=== PATIENT | male | born 1980 | race Caucasian/White ===

== ENCOUNTER 2018-11-12 19:55 | Observation (INO) ==
[2018-11-12] MEDS ORDERED: Acetaminophen 325 MG TABLET PO ONE (20:19)
[2018-11-12] MEDS ORDERED: Azithromycin 250 MG TABLET PO ONE (20:19)
[2018-11-12] MEDS ORDERED: 0.9 % Sodium Chloride 1,000 ML IVC ONE (20:19)
[2018-11-12] MEDS ORDERED: cefTRIAXone 1,000 MG in Water for inj. (sterile) 10 ML IVP ONE (20:19)
[2018-11-12 20:53] LABS: Basophils % 0.3 %; Eosinophils % 0.1 %; Hematocrit 45.9 % (37.5-50.1); Hemoglobin 15.4 g/dL (12.9-16.9); Immature Granulocytes % 0.3 % (0-4); Lymphocytes # 1.3 K/mcL (0.6-4.6); Lymphocytes % 13.8 %; Mean Corpuscular HGB Conc 33.6 g/dL (31.6-35.5); Mean Corpuscular Hemoglobin 28.6 pg (28.0-33.3); Mean Corpuscular Volume 85.2 fL (83.0-100.0); Monocytes # 0.6 K/mcL (0.0-1.3); Monocytes % 6.5 %; Neutrophils # 7.4 K/mcL (1.6-8.9); Platelet Count 206 K/mcL (140-400); Red Blood Count 5.39 M/mcL (4.19-5.50); Red Cell Distribution Width 12.1 % (11.5-14.5); White Blood Count 9.4 K/mcL (4.3-11.1)
[2018-11-12 21:00] LABS: INR 1.3; Prothrombin Time 14.7 Seconds (9.4-12.1)
[2018-11-12 21:17] LABS: Alanine Aminotransferase 25 Units/L (7-52); Albumin 4.4 g/dL (3.5-5.7); Albumin/Globulin Ratio 1.8 (1.1-2.2); Alkaline Phosphatase 55 Units/L (34-104); Aspartate Amino Transferase 15 Units/L (13-39); BUN/Creatinine Ratio 10 (6-26); Bilirubin,Direct 0.1 mg/dL (0.0-0.2); Bilirubin,Indirect 0.4 mg/dL (0.0-1.2); Bilirubin,Total 0.5 mg/dL (0.3-1.0); Blood Urea Nitrogen 12 mg/dL (6-20); Calcium 9.4 mg/dL (8.6-10.3); Carbon Dioxide 25 mEq/L (23-29); Chloride 99 mEq/L (98-107); Globulin 2.5 g/dL (2.4-3.5); Glucose 111 mg/dL (70-105); Osmolality,Calculated 274 (280-300); Potassium 3.7 mEq/L (3.5-5.1); Sodium 132 mEq/L (136-145); Total Protein 6.9 g/dL (6.4-8.9); Troponin I 0.08 ng/mL (< 0.04); eGFR For African Americans > 60 (> 60); eGFR For Non-African Americans > 60 (> 60)
[2018-11-12 21:56] LABS: Bilirubin,Urine Negative (Negative); Blood,Urine Negative (Negative); Clarity,Urine Clear (Clear); Color,Urine Yellow (Yellow); Glucose,Urine (UA) Normal (Normal); Ketones,Urine 15 mg/dL (Negative); Leukocyte Esterase,Urine Negative (Negative); Nitrite,Urine Negative (Negative); PH,Urine 6.5 pH Units (5.0-8.0); Protein,Urine Negative (Neg-Trace); Specific Gravity,Urine 1.017 (1.010-1.025); Urobilinogen,Urine Normal (Normal)
[2018-11-12] MEDS ORDERED: Isovue-370 500 ML BOTTLE IVP ONE (22:36)
[2018-11-12] MEDS ORDERED: Aspirin 325 MG TABLET PO ONE (22:45)
--- NOTE | 2018-11-13 01:07 | Emergency Department Note ---
Disposition Clinical Impression: Fever of unknown origin Disposition: Admitted As Inpatient Condition: Good Time of Disposition: 08:00 General Adult HPI - General Chief complaint: ED Fever Stated complaint: Fever, [place] Source: patient - History of Present Illness HPI Narrative: HPI Chief Complaint fever and malaise and body aches Patient Stated Complaint Patient is a 38-year-old white male comes in with generalized aches and fever tachycardia C couple weeks ago diagnosed with Lyme disease patient completed dian atment though states symptoms are returning patient states amount of fluid and feels like this denies ever having bite or any other symptoms patient states completed antibiotic course denies any chest pain or shortness of breath or any focal bone pain patient does state one episode of nausea vomiting is resolved patient is no flank pain or dysuria or symptoms reviewed are negative Allergy List : Reviewed-and agree with nurses notes Home Medication List : Reviewed-and agree with nurses notes Medical and Surgical History Active Problem List: Reviewed-and agree with nurses notes Family History Reviewed- see -nurses notes Vital Signs and Body Measurements Reviewed- see -nurses notes ROS At Least 10 Organ Systems Reviewed and Negative Except as Indicated in HPI Physical Examination: All findings normal unless otherwise noted Constitutional Alert & orientated x 3, No Acute Distress Well Nourished Head and Face :Normocephalic and Atraumatic Eye Extraocular Movement Intact Pupils Equally Round Reactive to light Ear Nose Throat Mucous Membranes Moist No Injury or Deformity Oropharynx Clear Cardiovascular Capillary Refill Less than 2 Seconds No Peripheral Edema Normal S1, S2 Pulses except positive tachycardia Respiratory Clear to Auscultation Bilaterally Normal Rate and Effort no Respiratory Distress or Stridor Gastrointestinal Abdomen Soft Bowel Sounds Present Not Tender Distended Generalized Tenderness. No Guarding Rebound Rigid Genitourinary No Lesion Normal External Genitalia Musculoskeletal Distal Pulses Normal No Injury or Deformity No Calf Tendernes, no Paraspinous Tenderness or spinal ttp Cervical Lumbar Thoracic Neurologic 5/5 Strength throughout No Focal Deficits Sensation Intact or Slurred Speech Skin Dry No Lesion No Rash Normal Color Warm no Cyanosis Diaphoretic Lymph No Lymphadenopathy or Lymphadenopathy Lymphedema Psychiatric Appropriate Affect Cooperative not Depressed Manic or having Suicidal Thoughts Laboratory Results-reviewed see results Data Reviewed Medical Decision Making and Diagnosis Medical Decision Making Patient seen and evaluated labs and imaging were reviewed images reviewed by myself and radiologist negative for any acute findings patient treated symptomatically imaging negative patient given antibiotics and IV fluids and I treated markedly improved though denies any difference from previous symptoms there was improved on repeat exam patient noted to have a mildly of elevated troponin O repeat declining will get ESR and CRP and check out to relieving provider for evaluation management care Differential Diagnosis Considered Final Diagnostic Impression #1 sirs #2 malaise #3 echocardiogram or Disposition Pain Scale: 7 - Related Data Home Medications Medication Instructions Recorded Confirmed Albuterol Sulfate [Proair Hfa] 1 - 2 puff IH Q4-6H PRN 11/13/18 11/13/18 Fluticasone Propionate [Flovent 2 puff IH QAM 11/13/18 11/13/18 Hfa] Omeprazole [PriLOSEC] 40 mg PO QAM 11/13/18 11/13/18 Previous Rx's Medication Instructions Recorded Doxycycline Hyclate 100 mg PO BID #40 tablet 11/14/18 Allergies Allergy/AdvReac Type Severity Reaction Status Date / Time No Known Allergies Allergy Verified 11/13/18 18:57 Past Medical History - Past Medical History Medical history: Reports: asthma, GERD, kidney stones Psychiatric history: Reports: no psych history - Social History Smoking Status: Never smoker Smokeless Tobacco Status: No Alcohol use: Reports: occasionally Drug use: Reports: none Physical Exam - General General appearance: alert Course Vital Signs Temperature 103 F H 11/12/18 20:01 Pulse Rate 112 11/12/18 20:01 Respiratory Rate 20 11/12/18 20:01 Blood Pressure 129/87 11/12/18 20:01 O2 Sat by Pulse Oximetry 98 11/12/18 20:01 Temperature 98.7 F 11/14/18 07:44 Pulse Rate 63 11/14/18 07:44 Respiratory Rate 16 11/14/18 07:44 Blood Pressure 123/82 11/14/18 07:44 O2 Sat by Pulse Oximetry 97 11/14/18 07:44 Oxygen Delivery Oxygen Delivery Room Air Medical Decision Making - Lab Data Result diagrams: 11/14/18 05:43 11/14/18 05:43 Lab Results 11/12/18 11/12/18 11/12/18 Range/Units 20:33 20:33 20:33 WBC 9.4 (4.3-11.1) K/mcL RBC 5.39 (4.19-5.50) M/mcL Hgb 15.4 (12.9-16.9) g/dL Hct 45.9 (37.5-50.1) % MCV 85.2 (83.0-100.0) fL MCH 28.6 (28.0-33.3) pg MCHC 33.6 (31.6-35.5) g/dL RDW 12.1 (11.5-14.5) % Plt Count 206 (140-400) K/mcL MPV 10.0 (9.4-12.4) fL Immature Gran % 0.3 (0-4) % Seg Neutrophils % 79.0 % Lymphocytes % 13.8 % Monocytes % 6.5 % Eosinophils % 0.1 % Basophils % 0.3 % Neutrophils # 7.4 (1.6-8.9) K/mcL Lymphocytes # 1.3 (0.6-4.6) K/mcL Monocytes # 0.6 (0.0-1.3) K/mcL Eosinophils # 0.0 (0.0-0.6) K/mcL Basophils # 0.0 (0.0-0.2) K/mcL ESR (0-10) mm/hr PT 14.7 H (9.4-12.1) Seconds INR 1.3 Sodium 132 L (136-145) mEq/L Potassium 3.7 (3.5-5.1) mEq/L Chloride 99 (98-107) mEq/L Carbon Dioxide 25 (23-29) mEq/L BUN 12 (6-20) mg/dL Creatinine 1.22 (0.70-1.30) mg/dL Est GFR ( Amer) > 60 (> 60) Est GFR (Non-Af Amer) > 60 (> 60) BUN/Creatinine Ratio 10 (6-26) Glucose 111 H (70-105) mg/dL Calculated Osmolality 274 L (280-300) Lactic Acid (0.5-2.2) mmol/L Calcium 9.4 (8.6-10.3) mg/dL Total Bilirubin 0.5 (0.3-1.0) mg/dL Direct Bilirubin 0.1 (0.0-0.2) mg/dL Indirect Bilirubin 0.4 (0.0-1.2) mg/dL AST 15 (13-39) Units/L ALT 25 (7-52) Units/L Alkaline Phosphatase 55 (34-104) Units/L Troponin I 0.08 H* (< 0.04) ng/mL C-Reactive Protein 50 H (Less than 10) mg/L Serum Total Protein 6.9 (6.4-8.9) g/dL Albumin 4.4 (3.5-5.7) g/dL Globulin 2.5 (2.4-3.5) g/dL Albumin/Globulin Ratio 1.8 (1.1-2.2) Urine Color (Yellow) Urine Clarity (Clear) Urine pH (5.0-8.0) pH Units Ur Specific [place] (1.010-1.025) Urine Protein (Neg-Trace) mg/dL Urine Glucose (UA) (Normal) mg/dL Urine Ketones (Negative) mg/dL Urine Blood (Negative) Urine Nitrite (Negative) Urine Bilirubin (Negative) Urine Urobilinogen (Normal) mg/dL Ur Leukocyte Esterase (Negative) Ur Culture Indicated? (NO) Urine Opiates Screen (Eaeitg=617) ng/mL Ur Buprenorphine Scrn (Cutoff=5) ng/mL Ur Barbiturates Screen (Qokuzv=252) ng/mL Ur Phencyclidine Scrn (Cutoff=25) ng/mL Ur Amphetamines Screen (Llmcrk=5820) ng/mL U Benzodiazepines Scrn (Kigkvj=778) ng/mL Urine Cocaine Screen (Cutoff= 300) ng/mL U Marijuana (THC) Screen (Cutoff = 50) ng/mL Ur Drug Screen Interp 11/12/18 11/12/18 11/12/18 Range/Units 20:33 20:33 21:40 WBC (4.3-11.1) K/mcL RBC (4.19-5.50) M/mcL Hgb (12.9-16.9) g/dL Hct (37.5-50.1) % MCV (83.0-100.0) fL MCH (28.0-33.3) pg MCHC (31.6-35.5) g/dL RDW (11.5-14.5) % Plt Count (140-400) K/mcL MPV (9.4-12.4) fL Immature Gran % (0-4) % Seg Neutrophils % % Lymphocytes % % Monocytes % % Eosinophils % % Basophils % % Neutrophils # (1.6-8.9) K/mcL Lymphocytes # (0.6-4.6) K/mcL Monocytes # (0.0-1.3) K/mcL Eosinophils # (0.0-0.6) K/mcL Basophils # (0.0-0.2) K/mcL ESR 12 H (0-10) mm/hr PT (9.4-12.1) Seconds INR Sodium (136-145) mEq/L Potassium (3.5-5.1) mEq/L Chloride (98-107) mEq/L Carbon Dioxide (23-29) mEq/L BUN (6-20) mg/dL Creatinine (0.70-1.30) mg/dL Est GFR ( Amer) (> 60) Est GFR (Non-Af Amer) (> 60) BUN/Creatinine Ratio (6-26) Glucose (70-105) mg/dL Calculated Osmolality (280-300) Lactic Acid 1.0 (0.5-2.2) mmol/L Calcium (8.6-10.3) mg/dL Total Bilirubin (0.3-1.0) mg/dL Direct Bilirubin (0.0-0.2) mg/dL Indirect Bilirubin (0.0-1.2) mg/dL AST (13-39) Units/L ALT (7-52) Units/L Alkaline Phosphatase (34-104) Units/L Troponin I (< 0.04) ng/mL C-Reactive Protein (Less than 10) mg/L Serum Total Protein (6.4-8.9) g/dL Albumin (3.5-5.7) g/dL Globulin (2.4-3.5) g/dL Albumin/Globulin Ratio (1.1-2.2) Urine Color Yellow (Yellow) Urine Clarity Clear (Clear) Urine pH 6.5 (5.0-8.0) pH Units Ur Specific [place] 1.017 (1.010-1.025) Urine Protein Negative (Neg-Trace) mg/dL Urine Glucose (UA) Normal (Normal) mg/dL Urine Ketones 15 H (Negative) mg/dL Urine Blood Negative (Negative) Urine Nitrite Negative (Negative) Urine Bilirubin Negative (Negative) Urine Urobilinogen Normal (Normal) mg/dL Ur Leukocyte Esterase Negative (Negative) Ur Culture Indicated? NO (NO) Urine Opiates Screen (Pamfvd=781) ng/mL Ur Buprenorphine Scrn (Cutoff=5) ng/mL Ur Barbiturates Screen (Idzenx=097) ng/mL Ur Phencyclidine Scrn (Cutoff=25) ng/mL Ur Amphetamines Screen (Qprzwd=6042) ng/mL U Benzodiazepines Scrn (Rssbch=143) ng/mL Urine Cocaine Screen (Cutoff= 300) ng/mL U Marijuana (THC) Screen (Cutoff = 50) ng/mL Ur Drug Screen Interp 11/12/18 11/12/18 Range/Units 21:40 22:48 WBC (4.3-11.1) K/mcL RBC (4.19-5.50) M/mcL Hgb (12.9-16.9) g/dL Hct (37.5-50.1) % MCV (83.0-100.0) fL MCH (28.0-33.3) pg MCHC (31.6-35.5) g/dL RDW (11.5-14.5) % Plt Count (140-400) K/mcL MPV (9.4-12.4) fL Immature Gran % (0-4) % Seg Neutrophils % % Lymphocytes % % Monocytes % % Eosinophils % % Basophils % % Neutrophils # (1.6-8.9) K/mcL Lymphocytes # (0.6-4.6) K/mcL Monocytes # (0.0-1.3) K/mcL Eosinophils # (0.0-0.6) K/mcL Basophils # (0.0-0.2) K/mcL ESR (0-10) mm/hr PT (9.4-12.1) Seconds INR Sodium (136-145) mEq/L Potassium (3.5-5.1) mEq/L Chloride (98-107) mEq/L Carbon Dioxide (23-29) mEq/L BUN (6-20) mg/dL Creatinine (0.70-1.30) mg/dL Est GFR ( Amer) (> 60) Est GFR (Non-Af Amer) (> 60) BUN/Creatinine Ratio (6-26) Glucose (70-105) mg/dL Calculated Osmolality (280-300) Lactic Acid (0.5-2.2) mmol/L Calcium (8.6-10.3) mg/dL Total Bilirubin (0.3-1.0) mg/dL Direct Bilirubin (0.0-0.2) mg/dL Indirect Bilirubin (0.0-1.2) mg/dL AST (13-39) Units/L ALT (7-52) Units/L Alkaline Phosphatase (34-104) Units/L Troponin I 0.07 H* (< 0.04) ng/mL C-Reactive Protein (Less than 10) mg/L Serum Total Protein (6.4-8.9) g/dL Albumin (3.5-5.7) g/dL Globulin (2.4-3.5) g/dL Albumin/Globulin Ratio (1.1-2.2) Urine Color (Yellow) Urine Clarity (Clear) Urine pH (5.0-8.0) pH Units Ur Specific [place] (1.010-1.025) Urine Protein (Neg-Trace) mg/dL Urine Glucose (UA) (Normal) mg/dL Urine Ketones (Negative) mg/dL Urine Blood (Negative) Urine Nitrite (Negative) Urine Bilirubin (Negative) Urine Urobilinogen (Normal) mg/dL Ur Leukocyte Esterase (Negative) Ur Culture Indicated? (NO) Urine Opiates Screen Negative (Cqutmz=475) ng/mL Ur Buprenorphine Scrn Negative (Cutoff=5) ng/mL Ur Barbiturates Screen Negative (Jhxhjm=948) ng/mL Ur Phencyclidine Scrn Negative (Cutoff=25) ng/mL Ur Amphetamines Screen Negative (Mtqbfn=6162) ng/mL U Benzodiazepines Scrn Negative (Chbdma=863) ng/mL Urine Cocaine Screen Negative (Cutoff= 300) ng/mL U Marijuana (THC) Screen Negative (Cutoff = 50) ng/mL Ur Drug Screen Interp See Below
[2018-11-13] MEDS ORDERED: Doxycycline 100 MG CAPSULE PO SCH (01:15)
[2018-11-13 01:19] LABS: C-Reactive Protein 50 mg/L (Less than 10)
--- NOTE | 2018-11-13 02:07 | Emergency Department Note ---
Disposition Clinical Impression: Fever of unknown origin Disposition: Admitted As Inpatient Condition: Good Referrals: NONE,PCP [Primary Care Provider] - Forms: ED Satisfaction Letter Time of Disposition: 02:06 General Adult HPI - General Chief complaint: ED Fever Stated complaint: Fever, [place] Time Seen by Provider: 11/13/18 01:29 Source: patient - History of Present Illness Pain Scale: 7 - Related Data Home Medications Medication Instructions Recorded Confirmed Fluticasone Propionate Nasal 1 spray IH PRN PRN 11/12/18 11/12/18 [Flonase] Omeprazole [PriLOSEC] 20 mg PO DAILY 11/12/18 11/12/18 Allergies Allergy/AdvReac Type Severity Reaction Status Date / Time No Known Allergies Allergy Verified 12/19/16 09:42 Past Medical History - Past Medical History Medical history: Reports: asthma, GERD, kidney stones Psychiatric history: Reports: no psych history - Social History Smoking Status: Never smoker Smokeless Tobacco Status: No Alcohol use: Reports: occasionally Drug use: Reports: none Physical Exam - General General appearance: alert Course Course Narrative: Patient was signed out pending hospitalist evaluation. Patient was seen by the hospitalist in the emergency department and accepted to the hospitalist service Vital Signs Temperature 103 F H 11/12/18 20:01 Pulse Rate 112 11/12/18 20:01 Respiratory Rate 20 11/12/18 20:01 Blood Pressure 129/87 11/12/18 20:01 O2 Sat by Pulse Oximetry 98 11/12/18 20:01 Temperature 101.9 F H 11/12/18 21:38 Pulse Rate 101 11/12/18 22:58 Respiratory Rate 20 11/12/18 22:58 Blood Pressure 121/89 11/12/18 22:58 O2 Sat by Pulse Oximetry 98 11/12/18 22:58 Oxygen Delivery Oxygen Delivery Room Air Medical Decision Making - Lab Data Result diagrams: 11/12/18 20:33 11/12/18 20:33 Lab Results 11/12/18 11/12/18 11/12/18 Range/Units 20:33 20:33 20:33 WBC 9.4 (4.3-11.1) K/mcL RBC 5.39 (4.19-5.50) M/mcL Hgb 15.4 (12.9-16.9) g/dL Hct 45.9 (37.5-50.1) % MCV 85.2 (83.0-100.0) fL MCH 28.6 (28.0-33.3) pg MCHC 33.6 (31.6-35.5) g/dL RDW 12.1 (11.5-14.5) % Plt Count 206 (140-400) K/mcL MPV 10.0 (9.4-12.4) fL Immature Gran % 0.3 (0-4) % Seg Neutrophils % 79.0 % Lymphocytes % 13.8 % Monocytes % 6.5 % Eosinophils % 0.1 % Basophils % 0.3 % Neutrophils # 7.4 (1.6-8.9) K/mcL Lymphocytes # 1.3 (0.6-4.6) K/mcL Monocytes # 0.6 (0.0-1.3) K/mcL Eosinophils # 0.0 (0.0-0.6) K/mcL Basophils # 0.0 (0.0-0.2) K/mcL ESR (0-10) mm/hr PT 14.7 H (9.4-12.1) Seconds INR 1.3 Sodium 132 L (136-145) mEq/L Potassium 3.7 (3.5-5.1) mEq/L Chloride 99 (98-107) mEq/L Carbon Dioxide 25 (23-29) mEq/L BUN 12 (6-20) mg/dL Creatinine 1.22 (0.70-1.30) mg/dL Est GFR ( Amer) > 60 (> 60) Est GFR (Non-Af Amer) > 60 (> 60) BUN/Creatinine Ratio 10 (6-26) Glucose 111 H (70-105) mg/dL Calculated Osmolality 274 L (280-300) Lactic Acid (0.5-2.2) mmol/L Calcium 9.4 (8.6-10.3) mg/dL Total Bilirubin 0.5 (0.3-1.0) mg/dL Direct Bilirubin 0.1 (0.0-0.2) mg/dL Indirect Bilirubin 0.4 (0.0-1.2) mg/dL AST 15 (13-39) Units/L ALT 25 (7-52) Units/L Alkaline Phosphatase 55 (34-104) Units/L Troponin I 0.08 H* (< 0.04) ng/mL C-Reactive Protein 50 H (Less than 10) mg/L Serum Total Protein 6.9 (6.4-8.9) g/dL Albumin 4.4 (3.5-5.7) g/dL Globulin 2.5 (2.4-3.5) g/dL Albumin/Globulin Ratio 1.8 (1.1-2.2) Urine Color (Yellow) Urine Clarity (Clear) Urine pH (5.0-8.0) pH Units Ur Specific [place] (1.010-1.025) Urine Protein (Neg-Trace) mg/dL Urine Glucose (UA) (Normal) mg/dL Urine Ketones (Negative) mg/dL Urine Blood (Negative) Urine Nitrite (Negative) Urine Bilirubin (Negative) Urine Urobilinogen (Normal) mg/dL Ur Leukocyte Esterase (Negative) Ur Culture Indicated? (NO) 11/12/18 11/12/18 11/12/18 Range/Units 20:33 20:33 21:40 WBC (4.3-11.1) K/mcL RBC (4.19-5.50) M/mcL Hgb (12.9-16.9) g/dL Hct (37.5-50.1) % MCV (83.0-100.0) fL MCH (28.0-33.3) pg MCHC (31.6-35.5) g/dL RDW (11.5-14.5) % Plt Count (140-400) K/mcL MPV (9.4-12.4) fL Immature Gran % (0-4) % Seg Neutrophils % % Lymphocytes % % Monocytes % % Eosinophils % % Basophils % % Neutrophils # (1.6-8.9) K/mcL Lymphocytes # (0.6-4.6) K/mcL Monocytes # (0.0-1.3) K/mcL Eosinophils # (0.0-0.6) K/mcL Basophils # (0.0-0.2) K/mcL ESR 12 H (0-10) mm/hr PT (9.4-12.1) Seconds INR Sodium (136-145) mEq/L Potassium (3.5-5.1) mEq/L Chloride (98-107) mEq/L Carbon Dioxide (23-29) mEq/L BUN (6-20) mg/dL Creatinine (0.70-1.30) mg/dL Est GFR ( Amer) (> 60) Est GFR (Non-Af Amer) (> 60) BUN/Creatinine Ratio (6-26) Glucose (70-105) mg/dL Calculated Osmolality (280-300) Lactic Acid 1.0 (0.5-2.2) mmol/L Calcium (8.6-10.3) mg/dL Total Bilirubin (0.3-1.0) mg/dL Direct Bilirubin (0.0-0.2) mg/dL Indirect Bilirubin (0.0-1.2) mg/dL AST (13-39) Units/L ALT (7-52) Units/L Alkaline Phosphatase (34-104) Units/L Troponin I (< 0.04) ng/mL C-Reactive Protein (Less than 10) mg/L Serum Total Protein (6.4-8.9) g/dL Albumin (3.5-5.7) g/dL Globulin (2.4-3.5) g/dL Albumin/Globulin Ratio (1.1-2.2) Urine Color Yellow (Yellow) Urine Clarity Clear (Clear) Urine pH 6.5 (5.0-8.0) pH Units Ur Specific [place] 1.017 (1.010-1.025) Urine Protein Negative (Neg-Trace) mg/dL Urine Glucose (UA) Normal (Normal) mg/dL Urine Ketones 15 H (Negative) mg/dL Urine Blood Negative (Negative) Urine Nitrite Negative (Negative) Urine Bilirubin Negative (Negative) Urine Urobilinogen Normal (Normal) mg/dL Ur Leukocyte Esterase Negative (Negative) Ur Culture Indicated? NO (NO) 11/12/18 Range/Units 22:48 WBC (4.3-11.1) K/mcL RBC (4.19-5.50) M/mcL Hgb (12.9-16.9) g/dL Hct (37.5-50.1) % MCV (83.0-100.0) fL MCH (28.0-33.3) pg MCHC (31.6-35.5) g/dL RDW (11.5-14.5) % Plt Count (140-400) K/mcL MPV (9.4-12.4) fL Immature Gran % (0-4) % Seg Neutrophils % % Lymphocytes % % Monocytes % % Eosinophils % % Basophils % % Neutrophils # (1.6-8.9) K/mcL Lymphocytes # (0.6-4.6) K/mcL Monocytes # (0.0-1.3) K/mcL Eosinophils # (0.0-0.6) K/mcL Basophils # (0.0-0.2) K/mcL ESR (0-10) mm/hr PT (9.4-12.1) Seconds INR Sodium (136-145) mEq/L Potassium (3.5-5.1) mEq/L Chloride (98-107) mEq/L Carbon Dioxide (23-29) mEq/L BUN (6-20) mg/dL Creatinine (0.70-1.30) mg/dL Est GFR ( Amer) (> 60) Est GFR (Non-Af Amer) (> 60) BUN/Creatinine Ratio (6-26) Glucose (70-105) mg/dL Calculated Osmolality (280-300) Lactic Acid (0.5-2.2) mmol/L Calcium (8.6-10.3) mg/dL Total Bilirubin (0.3-1.0) mg/dL Direct Bilirubin (0.0-0.2) mg/dL Indirect Bilirubin (0.0-1.2) mg/dL AST (13-39) Units/L ALT (7-52) Units/L Alkaline Phosphatase (34-104) Units/L Troponin I 0.07 H* (< 0.04) ng/mL C-Reactive Protein (Less than 10) mg/L Serum Total Protein (6.4-8.9) g/dL Albumin (3.5-5.7) g/dL Globulin (2.4-3.5) g/dL Albumin/Globulin Ratio (1.1-2.2) Urine Color (Yellow) Urine Clarity (Clear) Urine pH (5.0-8.0) pH Units Ur Specific [place] (1.010-1.025) Urine Protein (Neg-Trace) mg/dL Urine Glucose (UA) (Normal) mg/dL Urine Ketones (Negative) mg/dL Urine Blood (Negative) Urine Nitrite (Negative) Urine Bilirubin (Negative) Urine Urobilinogen (Normal) mg/dL Ur Leukocyte Esterase (Negative) Ur Culture Indicated? (NO)
[2018-11-13] MEDS ORDERED: Ondansetron 4 MG/2 ML VIAL IVP PRN (03:03)
[2018-11-13] MEDS ORDERED: Acetaminophen 325 MG TABLET PO PRN (03:29)
[2018-11-13] MEDS ORDERED: traMADol 50 MG TABLET PO PRN (03:29)
[2018-11-13] MEDS ORDERED: 0.9 % Sodium Chloride 1,000 ML IVC SCH ×2 (03:30→09:30)
[2018-11-13 04:18] LABS: Basophils % 0.2 %; Eosinophils % 0.2 %; Hemoglobin 15.4 g/dL (12.9-16.9); Immature Granulocytes % 0.3 % (0-4); Lymphocytes # 1.1 K/mcL (0.6-4.6); Lymphocytes % 11.9 %; Mean Corpuscular HGB Conc 32.8 g/dL (31.6-35.5); Mean Corpuscular Hemoglobin 28.7 pg (28.0-33.3); Mean Corpuscular Volume 87.7 fL (83.0-100.0); Mean Platelet Volume 9.9 fL (9.4-12.4); Monocytes # 0.6 K/mcL (0.0-1.3); Monocytes % 6.1 %; Neutrophils # 7.5 K/mcL (1.6-8.9); Platelet Count 181 K/mcL (140-400); Red Blood Count 5.36 M/mcL (4.19-5.50); Red Cell Distribution Width 12.3 % (11.5-14.5); Segmented Neutrophils % 81.3 %; White Blood Count 9.2 K/mcL (4.3-11.1)
--- NOTE | 2018-11-13 04:18 | Internal Med History&Physical ---
Date of Encounter: 11/13/18 Time of Encounter: 04:16 Internal Medicine - H&P: HPI Chief complaint: fever Admitted From: Home Plans for Post Hospital Care: Home History of present illness: Tim Angel is a 38 year old man with a history of multiple kidney stones who presents to the emergency room complaining of fever and myalgias for the past 2 days. He says that about 3 weeks ago he felt like he had the flu, describing diffuse body myalgias and headache with generalized malaise, fever and chills. He went to urgent care where he was given a course of doxycycline because he told them he once found a tick on his body in 2010 and was treated for Lyme disease. He says he felt better over these past 2 weeks but then since Monday has developed a recurrence of the fever and chills, generalized body aches and migraine type headaches. He says his appetite has been poor, he has nausea and vomiting but no diarrhea or dysuria. He denies penile discharge. He denies any rashes on his body. He also denies nasal discharge or congestion, sore throat, pleuritic chest pain, cough, shortness of breath and dizziness. 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 On arrival to the ER he was febrile to 103F and tachycardic. Lab work was grossly unrevealing except an elevated troponin found incidentally at 0.08 with repeat 0.07. Urinalysis was clear. Extensive CT images were obtained none of which showed any abnormalities. He was given fluids, aspirin, ceftriaxone and azithromycin empirically. He is admitted for observation. Vitals: Reviewed General: Well developed white man lying comfortably in bed in [facility], occasionally seen to have chills and rigors. Skin: Warm, supple, no rashes, lesions or ulcers seen. HEENT: Moist mucous membranes. No conjunctivae pallor. No oropharyngeal exudate, tonsillar swelling or erythema. Neck: No lymphadenopathy. No JVD. No carotid bruits. No palpable thyroid. Chest: Normal thoracic expansion. Normal breath sounds. Clear to auscultation. Heart: Normal S1 & S2; rhythmic. No rubs or murmurs. Abdomen: Non-distended, soft and non-tender to palpation. No peritoneal reaction. Extremities: No clubbing, cyanosis or edema. No calf tenderness. Normal distal pulses. Neurological: Awake, alert and oriented to person, place and time. No focal deficits. Psych: Affect appropriate. Assessment/Plan 1. Systemic inflammatory response syndrome: The etiology of which is unclear. He has no focalizing signs or symptoms as his chief complaints are fever, chills and generalized aches. His physical exam was unremarkable. Complementary studies thus far have been unrevealing with no leukocytosis, pyuria, and signs of respiratory or gastrointestinal illness. Will keep him off continued antibiotics for now as we await for more signs to manifest. Will get another set of blood cultures to help increase the result yield. Check urine drug screen. Obtain serologies for hepatitis, HIV and syphilis. Check a respiratory virus panel. Continue IVF, analgesics, antipyretics and antiemetics in the meantime as n eeded. 2. Elevated troponin: It is plausible that it may come from the inflammatory syndrome he is presenting with. His EKG reveals sinus tachycardia and on aus cultation there are no murmurs detected, partially limited by the rapid heart rate. Will continue to trend this enzyme and also schedule for an echo to rule out a valvular infective process among other things. 3. Kidney stones: Longstanding and asymptomatic. Hydration recommended. 4. DVT prophylaxis: Antiembolic stockings ordered. Past Med Surg Social Fam HX - Past Medical History Medical history: asthma, GERD, kidney stones Psychiatric history: no psych history - Past Surgical History Additional surgical history: tonsils - Social History Smoking Status: Never smoker Smokeless Tobacco Status: Yes Alcohol use: occasionally Drug use: none - Family History Mother Hx Family Cancer: Yes (breast ca) Father Hx Family Cardiac Disorders: Yes (htn,pacer) Internal Medicine - H&P: Meds Fluticasone Propionate Nasal [Flonase] 1 spray IH PRN PRN 11/12/18 [History] Omeprazole [PriLOSEC] 20 mg PO DAILY 11/12/18 [History] Allergy/AdvReac Type Severity Reaction Status Date / Time No Known Allergies Allergy Verified 12/19/16 09:42 All Systems PM: A 10-system review of systems was performed and is negative for pertinent findings except as documented above in the HPI. - Constitutional Vitals: Temp Pulse Resp BP Pulse Ox 98.5 F 78 16 121/82 96 11/13/18 02:55 11/13/18 02:55 11/13/18 02:55 11/13/18 02:55 11/13/18 02:55 Exam: . Internal Med - H&P Results - Labs CBC & Chem 7: 11/12/18 20:33 11/12/18 20:33 Labs: Short CBC 11/12/18 Range/Units 20:33 WBC 9.4 (4.3-11.1) K/mcL Hgb 15.4 (12.9-16.9) g/dL Hct 45.9 (37.5-50.1) % Plt Count 206 (140-400) K/mcL Neutrophils # 7.4 (1.6-8.9) K/mcL BMP 11/12/18 20:33 Sodium 132 L Potassium 3.7 Chloride 99 Carbon Dioxide 25 BUN 12 Creatinine 1.22 Glucose 111 H Calcium 9.4 Cardiac Enzymes 11/12/18 11/12/18 Range/Units 20:33 22:48 Troponin I 0.08 H* 0.07 H* (< 0.04) ng/mL Liver Function 11/12/18 Range/Units 20:33 Total Bilirubin 0.5 (0.3-1.0) mg/dL Direct Bilirubin 0.1 (0.0-0.2) mg/dL AST 15 (13-39) Units/L ALT 25 (7-52) Units/L Alkaline Phosphatase 55 (34-104) Units/L Albumin 4.4 (3.5-5.7) g/dL Urine 11/12/18 Range/Units 21:40 Urine Color Yellow (Yellow) Urine Clarity Clear (Clear) Urine pH 6.5 (5.0-8.0) pH Units Ur Specific [place] 1.017 (1.010-1.025) Urine Protein Negative (Neg-Trace) mg/dL Urine Glucose (UA) Normal (Normal) mg/dL - Impressions ITS Impressions Chest X-Ray 11/12/18 20:20 IMPRESSION: No acute cardiopulmonary disease. D/ / Navarro Sahu MD / Navarro Sahu MD Interpreting Provider: Navarro Sahu MD Abdomen/Pelvis CT 11/12/18 20:36 IMPRESSION: No acute inflammatory process or bowel obstruction. Mild colonic diverticulosis. Bilateral nonobstructive renal calculi. No hydronephrosis. Fatty infiltration liver. D/ / Virgilio Bullard / Virgilio Bullard Interpreting Provider: Virgilio Bullard Chest CTA 11/12/18 22:36 IMPRESSION: 1. Unremarkable CTA chest. No aortic dissection/aneurysm or pulmonary embolism. 2. Diverticulosis coli without CT evidence of acute diverticulitis. 3. Hepatic steatosis. 4. Punctate nonobstructing calculi inferior pole right kidney and upper and lower pole left kidney. 5. No CT evidence of an acute intra-abdominal or intrapelvic process. D/ / Napoleon Chaparro / Napoleon Chaparro Interpreting Provider: Napoleon Chaparro Abdomen/Pelvis CT 11/12/18 22:38 IMPRESSION: 1. Unremarkable CTA chest. No aortic dissection/aneurysm or pulmonary embolism. 2. Diverticulosis coli without CT evidence of acute diverticulitis. 3. Hepatic steatosis. 4. Punctate nonobstructing calculi inferior pole right kidney and upper and lower pole left kidney. 5. No CT evidence of an acute intra-abdominal or intrapelvic process. D/ / Napoleon Chaparro / Napoleon Chaparro Interpreting Provider: Napoleon Chaparro Head CT 11/12/18 22:38 IMPRESSION: No acute intracranial abnormality. D/ / Blas Okeefe MD / Blas Okeefe MD Interpreting Provider: Blas Okeefe MD - Time Spent With Patient Total time spent is greater than 50% in coordination of care (as documented) at patient's floor/unit and/or counseling patient:
[2018-11-13 04:41] LABS: Troponin I 0.07 ng/mL (< 0.04)
[2018-11-13 04:44] LABS: BUN/Creatinine Ratio 10 (6-26); Blood Urea Nitrogen 11 mg/dL (6-20); Calcium 8.7 mg/dL (8.6-10.3); Carbon Dioxide 26 mEq/L (23-29); Chloride 100 mEq/L (98-107); Glucose 117 mg/dL (70-105); Osmolality,Calculated 286 (280-300); Potassium 3.8 mEq/L (3.5-5.1); Sodium 138 mEq/L (136-145); eGFR For African Americans > 60 (> 60); eGFR For Non-African Americans > 60 (> 60)
[2018-11-13 04:48] LABS: Hepatitis B Surface Antigen Nonreactive (Nonreactive)
[2018-11-13 04:49] LABS: Amphetamine Screen,Urine Negative ng/mL (Cutoff=1000); Barbiturate Screen,Urine Negative ng/mL (Cutoff=200); Benzodiazepines Screen,Urine Negative ng/mL (Cutoff=200); Cannabinoid Screen,Urine Negative ng/mL (Cutoff = 50); Cocaine Screen,Urine Negative ng/mL (Cutoff= 300); Opiate Screen,Urine Negative ng/mL (Cutoff=300); Phencyclidine Screen,Urine Negative ng/mL (Cutoff=25)
[2018-11-13 05:16] LABS: Hepatitis B Core IgM Nonreactive (Nonreactive)
[2018-11-13 05:17] LABS: HIV-1&2 Antibody & p24 Ag Nonreactive (Nonreactive)
[2018-11-13 05:18] LABS: Hepatitis A Antibody IgM Nonreactive (Nonreactive); Hepatitis C Virus Antibody Nonreactive (Nonreactive)
[2018-11-13 05:34] LABS: Adenovirus Not Detected (Not Detect); Coronavirus 229E Not Detected (Not Detect); Coronavirus HKU1 Not Detected (Not Detect); Coronavirus NL63 Not Detected (Not Detect); Coronavirus OC43 Not Detected (Not Detect); Human Metapneumovirus Not Detected (Not Detect); Human Rhinovirus/Enterovirus Not Detected (Not Detect); Influenza A Subtype 2009 H1 Not Detected (Not Detect); Influenza A Untypeable Not Detected (Not Detect); Influenza B Not Detected (Not Detect)
[2018-11-13 05:35] LABS: Bordetella Pertussis Not Detected (Not Detect); Chlamydophila pneumoniae Not Detected (Not Detect); Mycoplasma pneumoniae Not Detected (Not Detect); Parainfluenza Virus 1 Not Detected (Not Detect); Parainfluenza Virus 2 Not Detected (Not Detect); Parainfluenza Virus 3 Not Detected (Not Detect); Parainfluenza Virus 4 Not Detected (Not Detect); Respiratory Syncytial Virus Not Detected (Not Detect)
--- NOTE | 2018-11-13 13:14 | Internal Med Progress Note ---
Hospitalist Progress Note - Encounter Date of Encounter: 11/13/18 Time of Encounter: 12:00 - Subjective Interval History: Pt was seen and examined at bed side. He is still c.o fronral headache and pain behind the eyes.. Loss of appetite and generalized body aches - Exam Vitals: Temp Pulse Resp BP Pulse Ox 98.5 F 70 16 110/69 99 11/13/18 12:02 11/13/18 12:02 11/13/18 12:02 11/13/18 12:02 11/13/18 12:02 Exam: Gen: Alert, awake, Oriented to time,place and person Chest: Diminished breath sounds B/L, No wheezing, No crackles, No rales Heart: S1S2+ RRR No murmurs Abd: Soft, NT, BS +, No organomegaly Ext: No edema, pulses are palpable, No calf tenderness Neuro : No acute focal neuro deficits noticed...Normal reflexes..No motor sensory deficit noticed..No neck stiffness Skin: No rash. - Assessment and Plan (1) SIRS (systemic inflammatory response syndrome) Current Visit: Yes Status: Acute Assessment and Plan: Pt did meet SITS criteria with Fever and tachycardia cont supportive and symptomatic care IV hydration (2) Fever of unknown origin Current Visit: Yes Status: Acute Assessment and Plan: Unclear etiology He did mention - he had a tick bite 2 weeks ago He did have similar symptoms 2 weeks ago pt was placed ob PO Doxy at local urgent care center Will check Lyme titer Blood cx - P Echo showed LVEF 60%, indeterminate diastolic function Serology - negative will f/u on HIV, Syphilis Started him on IV Doxy Cont IVF (3) Headache Current Visit: Yes Status: Acute Assessment and Plan: Concerning for possible sinusitis Also with his fever , wanted to check CSF analysis, however not able to do LP now since he received ASA [address] of Head- no acute ICH / no acute abnormalities noticed Will get CT of Sinuses - Time Spent with Patient Total time spent is greater than 50% in coordination of care (as documented) at patient's floor/unit and/or counseling patient: Internal Medicine: Result - Labs CBC & Chem 7: 11/13/18 03:59 11/13/18 03:59 Labs: Short CBC 11/12/18 11/13/18 Range/Units 20:33 03:59 WBC 9.4 9.2 (4.3-11.1) K/mcL Hgb 15.4 15.4 (12.9-16.9) g/dL Hct 45.9 47.0 (37.5-50.1) % Plt Count 206 181 (140-400) K/mcL Neutrophils # 7.4 7.5 (1.6-8.9) K/mcL BMP 11/12/18 11/13/18 20:33 03:59 Sodium 132 L 138 Potassium 3.7 3.8 Chloride 99 100 Carbon Dioxide 25 26 BUN 12 11 Creatinine 1.22 1.12 Glucose 111 H 117 H Calcium 9.4 8.7 Cardiac Enzymes 11/12/18 11/12/18 11/13/18 Range/Units 20:33 22:48 03:59 Troponin I 0.08 H* 0.07 H* 0.07 H* (< 0.04) ng/mL Liver Function 11/12/18 Range/Units 20:33 Total Bilirubin 0.5 (0.3-1.0) mg/dL Direct Bilirubin 0.1 (0.0-0.2) mg/dL AST 15 (13-39) Units/L ALT 25 (7-52) Units/L Alkaline Phosphatase 55 (34-104) Units/L Albumin 4.4 (3.5-5.7) g/dL Urine 11/12/18 Range/Units 21:40 Urine Color Yellow (Yellow) Urine Clarity Clear (Clear) Urine pH 6.5 (5.0-8.0) pH Units Ur Specific [place] 1.017 (1.010-1.025) Urine Protein Negative (Neg-Trace) mg/dL Urine Glucose (UA) Normal (Normal) mg/dL - ABG Interpretation ABG results: PT/INR, D-dimer PT 14.7 Seconds (9.4-12.1) H 11/12/18 20:33 - Impressions Impressions Chest X-Ray 11/12/18 20:20 IMPRESSION: No acute cardiopulmonary disease. D/ / Navarro Sahu MD / Navarro Sahu MD Interpreting Provider: Navarro Sahu MD Abdomen/Pelvis CT 11/12/18 20:36 IMPRESSION: No acute inflammatory process or bowel obstruction. Mild colonic diverticulosis. Bilateral nonobstructive renal calculi. No hydronephrosis. Fatty infiltration liver. D/ / Virgilio Bullard / Virgilio Bullard Interpreting Provider: Virgilio Bullard Chest CTA 11/12/18 22:36 IMPRESSION: 1. Unremarkable CTA chest. No aortic dissection/aneurysm or pulmonary embolism. 2. Diverticulosis coli without CT evidence of acute diverticulitis. 3. Hepatic steatosis. 4. Punctate nonobstructing calculi inferior pole right kidney and upper and lower pole left kidney. 5. No CT evidence of an acute intra-abdominal or intrapelvic process. D/ / Napoleon Chaparro / Napoleon Chaparro Interpreting Provider: Napoleon Chaparro Abdomen/Pelvis CT 11/12/18 22:38 IMPRESSION: 1. Unremarkable CTA chest. No aortic dissection/aneurysm or pulmonary embolism. 2. Diverticulosis coli without CT evidence of acute diverticulitis. 3. Hepatic steatosis. 4. Punctate nonobstructing calculi inferior pole right kidney and upper and lower pole left kidney. 5. No CT evidence of an acute intra-abdominal or intrapelvic process. D/ / Napoleon Chaparro / Napoleon Chaparro Interpreting Provider: Napoleon Chaparro Head CT 11/12/18 22:38 IMPRESSION: No acute intracranial abnormality. D/ / 11/13/2018 07:04:52 Blas Okeefe MD / [facility] Interpreting Provider: Blas Okeefe MD Consult Discharge Plan - Plan Referrals: NONE,PCP [Primary Care Provider] - (3) Headache Qualifiers: Headache type: tension-type Headache chronicity pattern: acute headache Intractability: intractable Qualified Code(s): G44.201 - Tension-type headache, unspecified, intractable
[2018-11-13] MEDS: Doxycycline 100 MG in 0.9 % Sodium Chloride Mini Bag 100 ML IVPB SCH ×2 (14:18→20:32)
[2018-11-14] MEDS: Doxycycline 100 MG in 0.9 % Sodium Chloride Mini Bag 100 ML IVPB SCH (05:23)
--- NOTE | 2018-11-14 06:26 | Electrocardiograph Report ---
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
[2018-11-14 06:28] LABS: Basophils % 0.5 %; Eosinophils # 0.2 K/mcL (0.0-0.6); Hematocrit 43.9 % (37.5-50.1); Hemoglobin 14.5 g/dL (12.9-16.9); Immature Granulocytes % 0.3 % (0-4); Lymphocytes # 1.8 K/mcL (0.6-4.6); Lymphocytes % 47.5 %; Mean Corpuscular Volume 87.8 fL (83.0-100.0); Monocytes # 0.6 K/mcL (0.0-1.3); Monocytes % 15.1 %; Neutrophils # 1.2 K/mcL (1.6-8.9); Platelet Count 159 K/mcL (140-400); Red Cell Distribution Width 12.3 % (11.5-14.5); Segmented Neutrophils % 31.6 %; White Blood Count 3.8 K/mcL (4.3-11.1)
[2018-11-14 07:32] LABS: BUN/Creatinine Ratio 10 (6-26); Blood Urea Nitrogen 9 mg/dL (6-20); Calcium 8.5 mg/dL (8.6-10.3); Carbon Dioxide 27 mEq/L (23-29); Chloride 104 mEq/L (98-107); Glucose 89 mg/dL (70-105); Osmolality,Calculated 284 (280-300); Potassium 3.9 mEq/L (3.5-5.1); Sodium 138 mEq/L (136-145); eGFR For African Americans > 60 (> 60); eGFR For Non-African Americans > 60 (> 60)
[2018-11-14 07:45] VITALS: BP 123/82
--- NOTE | 2018-11-14 09:12 | Discharge Summary ---
- NOTES TO OUTPATIENT PROVIDER Notes to Outpatient Provider: f/u with PCP in one week. Please go for lab work CBC in 3 days. Orders not resulted at time of discharge: Pending orders 11/12/18 20:33 Culture,Blood [BC] Stat 11/13/18 03:59 Culture,Blood [BC] Routine 11/13/18 12:36 Borrelia burgdorferi Panel CSF Routine Cell Count w Diff, CSF [BF] Routine Culture,CSF [RM] Routine Glucose,CSF [BF] Routine HOLD TUBE, CSF [BF] Routine HSV 1 Glycoprotein G IgG CSF Routine HSV 2 Glycoprotein G IgG CSF Routine Total Protein,CSF [BF] Routine Date of Encounter: 11/14/18 Time of Encounter: 09:06 - Discharge Diagnosis (1) SIRS (systemic inflammatory response syndrome) Priority: Primary Status: Acute (2) Fever of unknown origin Priority: Primary Status: Acute (3) Headache Priority: Secondary Status: Acute Qualifiers: Headache type: tension-type Headache chronicity pattern: acute headache Intractability: intractable Qualified Code(s): G44.201 - Tension-type headache, unspecified, intractable (4) Elevated troponin I level Priority: Secondary Status: Acute Hospital course: Mr. Angel is a 38 year old male with a history of multiple kidney stones who presented to the ED complaining of fever and myalgias for the past 2 days. He says that about 3 weeks ago he felt like he had the flu, describing diffuse body myalgias and headache with generalized malaise, fever and chills. He went to urgent care where he was given a course of doxycycline because he told them, he found a tick on his body recently and prior to this found a tick on his body in 2010 and was treated for Lyme disease. He says he felt better over these past 2 weeks but then since Monday has developed a recurrence of the fever and chills, generalized body aches and migraine type headaches. He says his appetite has been poor, he has nausea and vomiting but no diarrhea or dysuria. 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 On arrival to the ER he was febrile to 103F and tachycardic. Lab work was grossly unrevealing except an elevated troponin found incidentally at 0.08 with repeat 0.07. Urinalysis was clear. Extensive CT images were obtained none of which showed any abnormalities. His ESR -15 and CRP-50. I did order Lyme serology titers. His Resp viral panel and other infectious serology markers were negative so far. His blood cx were no growth in 2 days. He remained afebrile for 36 hrs. I started him on Doxy suspecting lyme disease. Today his WBC was slightly low @ 3.8, With ANC @ 1200. Pt wanted to go home today, so recommend him to go for out pt f/u CBC in 3 days. Provided him Rx. - Time Spent with Patient Total time spent providing and/or coordinating discharge services: - Discharge Medications Prescriptions: New Doxycycline Hyclate 100 mg PO BID #40 tablet Continued Omeprazole [PriLOSEC] 40 mg PO QAM Fluticasone Propionate [Flovent Hfa] 2 puff IH QAM Albuterol Sulfate [Proair Hfa] 1 - 2 puff IH Q4-6H PRN PRN Reason: Shortness Of Breath Home Medications: Albuterol Sulfate [Proair Hfa] 1 - 2 puff IH Q4-6H PRN 11/13/18 [History] Fluticasone Propionate [Flovent Hfa] 2 puff IH QAM 11/13/18 [History] Omeprazole [PriLOSEC] 40 mg PO QAM 11/13/18 [History] Doxycycline Hyclate 100 mg PO BID #40 tablet 11/14/18 [Rx] Allergies/Adverse Reactions: Allergy/AdvReac Type Severity Reaction Status Date / Time No Known Allergies Allergy Verified 11/13/18 18:57 Date of admission: 11/13/18 02:20 Primary care physician: PCP NONE - Constitutional Vitals: Temp Pulse Resp BP Pulse Ox 98.7 F 63 16 123/82 97 11/14/18 07:44 11/14/18 07:44 11/14/18 07:44 11/14/18 07:44 11/14/18 07:44 General appearance: Present: cooperative, A&O X 3, no acute distress, answers questions appropriately Exam: Gen: Alert, awake, Oriented to time,place and person Chest: Diminished breath sounds B/L, No wheezing, No crackles, No rales Heart: S1S2+ RRR No murmurs Abd: Soft, NT, BS +, No organomegaly Ext: No edema, pulses are palpable, No calf tenderness Neuro : No acute focal neuro deficits noticed...Normal reflexes..No motor sensory deficit noticed..No neck stiffness Skin: No rash. - Patient Status Disposition: Home, Self-Care Condition: Good Overall status at discharge: patient is back to baseline - Ambulatory Orders Ambulatory Orders: Complete Blood Count [HEME] Time Frame: 3 Days, Facility: [facility], Location: Lab - Discharge Instructions Follow Up With: NONE,PCP [Primary Care Provider] - - Diet and Activity Activity: increase activity as tolerated Diet: low salt diet
--- NOTE | 2018-11-15 15:14 | Electrocardiograph Report ---
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
== END 2018-11-14 09:28 | disposition home or self-care (01) ==
LOC: 3BNU 19:55 → EMEROOARM 19:55 → SUATTDRO 11-13 02:20 → 3BNU 11-13 02:45
PROVIDERS: ADMIT Internal Medicine; ATTEND Family Medicine